=== PATIENT | female | born 1940 | race Asian ===

== ENCOUNTER → 2017-01-27 | Outpatient (CLI) | payer OTHER, BC | END | disposition home or self-care (01) | LOC: MA 13:20 | PROC: BH02ZZZ Plain Radiography of Bilateral Breasts (ICD-10-PCS; principal; 2017-01-27) | DX: R92.8 Other abnormal and inconclusive findings on diagnostic imaging of breast (principal) | CPT/HCPCS: G0206 ==

== ENCOUNTER → 2017-07-22 | Outpatient (CLI) | payer OTHER, BC | END | disposition home or self-care (01) | LOC: MA 12:34 | PROC: BH02ZZZ Plain Radiography of Bilateral Breasts (ICD-10-PCS; principal; 2017-07-22) | DX: Z12.31 Encounter for screening mammogram for malignant neoplasm of breast (principal) | CPT/HCPCS: G0202 ==

== ENCOUNTER → 2018-05-20 | Outpatient (CLI) | payer OTHER, BC | END | disposition home or self-care (01) | LOC: RD 15:14 | DX: M54.5 Low back pain (principal) ==

== ENCOUNTER → 2018-07-27 | Outpatient (CLI) | payer OTHER, BC ==
[2018-07-27 12:50] LABS: PLATELET COUNT 214 x10^3mcL (130-400); RED CELL DISTRIBUTION WIDTH 13.5 % (11.5-14.5)
[2018-07-27 13:07] LABS: UA SPECIFIC GRAVITY 1.025 (1.005-1.035); microscopic required? YES; urine erythrocyte NEGATIVE (NEGATIVE)
[2018-07-27 13:29] LABS: ALBUMIN 4.1 g/dL (3.4-5.0); ALKALINE PHOSPHATASE 92 U/L (46-116); ALT/SGPT 33 U/L (14-59); AST/SGOT 29 U/L (15-37); BILIRUBIN TOTAL 0.56 mg/dL (0.20-1.00); CALCIUM 9.3 mg/dL (8.5-10.1); CARBON DIOXIDE 29.9 mmol/L (21-32); CHLORIDE SERUM 99 mmol/L (98-107); CREATININE SERUM 0.9 mg/dL (0.6-1.0); GLUCOSE SERUM 105 mg/dL (74-106); POTASSIUM SERUM 3.2 mmol/L (3.5-5.1); SODIUM SERUM 139 mmol/L (136-145); URIC ACID 8.9 mg/dL (2.6-6.0)
[2018-07-27 13:31] LABS: CHOLESTEROL/HDL RATIO 2.2; TOTAL PROTEIN, SERUM 8.4 g/dL (6.4-8.2)
[2018-07-27 13:37] LABS: BAND NEUTROPHIL 3 % (0-10); BASOPHIL 0 % (0-2); MONOCYTE 3 % (0-7); SEGMENTED NEUTROPHILS 71 % (37-75)
[2018-07-27 13:38] LABS: rbc morphology (normal/abnorm) NORMAL (NORMAL)
[2018-07-27 13:39] LABS: PLATELET MORPHOLOGY PLATELETS NORMAL
[2018-07-29 13:05] LABS: microalbumin:creatinine ratio 12.9 (0.0-30.0)
== END | disposition home or self-care (01) ==
LOC: MA 10:30
PROC: BH02ZZZ Plain Radiography of Bilateral Breasts (ICD-10-PCS; principal; 2018-07-27)
DX: R07.9 Chest pain, unspecified (principal); Z12.31 Encounter for screening mammogram for malignant neoplasm of breast
CPT/HCPCS: 77067

== ENCOUNTER → 2019-07-30 | Outpatient (CLI) | payer OTHER, BC | END | disposition home or self-care (01) | LOC: MA 09:54 | PROC: BH02ZZZ Plain Radiography of Bilateral Breasts (ICD-10-PCS; principal; 2019-07-30) | DX: Z12.31 Encounter for screening mammogram for malignant neoplasm of breast (principal) | CPT/HCPCS: 77067 ==